=== PATIENT | female | born 1940 | race African-American/Black ===

== ENCOUNTER 2021-08-25 09:47 | Outpatient (REF) | payer MEDICARE, MEDICAID, SELFPAY ==
[2021-08-25 11:44] LABS: Vitamin B12 351 pg/mL (200-900)
== END 2021-08-25 09:48 | disposition home or self-care (01) ==
LOC: HO.LAB 09:47
PROVIDERS: PCP Internal Medicine; Visit Provider Psychiatry & Neurology Neurology
DX: G31.84 Mild cognitive impairment of uncertain or unknown etiology (principal)
CPT/HCPCS: 36415; 82607